=== PATIENT | male | born 1955 | race Caucasian/White ===

== ENCOUNTER 2023-09-26 19:13 | Inpatient (IN) | payer OTHER, MEDICAID ==
[~2023-09-26] VITALS: Ht 170.2 cm; Wt 70.3 kg
[2023-09-26 19:20] VITALS: BP_SYST 140; PULSE 127; RESP 25; TEMP 100.5; O2SAT 92
[2023-09-26] MEDS ORDERED: PIPERACILLIN/TAZOBACTAM 3.375 GM/VIAL (ZOSYN) IV ONE (19:42)
[2023-09-26] MEDS: methylPREDNISolone SOD SUCC/PF 62.5 MG/ML VIAL IVP ONE (19:48)
[2023-09-26 20:24] LABS: BASOPHILS % (AUTO) 0.3 % (0.0-2.0); HEMATOCRIT 38.9 % (36-54); HEMOGLOBIN 12.8 g/dL (14.0-18.0); LYMPHOCYTES # (AUTO) 0.6 K/uL (1.0-5.5); LYMPHOCYTES % (AUTO) 5.6 % (20.5-51.5); MEAN CORPUSCULAR HEMOGLOBIN 31 pg (27-31); MEAN CORPUSCULAR HGB CONC 33 % (32-36); MEAN CORPUSCULAR VOLUME 93 fL (79.0-98.0); MONOCYTES # (AUTO) 0.4 K/uL (0.0-1.0); MONOCYTES % (AUTO) 3.2 % (1.7-9.3); NEUTROPHILS # (AUTO) 10.2 K/uL (1.8-7.7); NEUTROPHILS % (AUTO) 90.9 % (40.0-70.0); PLATELET COUNT (AUTO) 245 K/uL (130-430); RED BLOOD CELL COUNT(AUTO) 4.18 MIL/uL (4.2-6.2); RED CELL DISTRIBUTION WIDTH 17.1 % (9.0-15.0); WHITE BLOOD COUNT (AUTO) 11.2 K/uL (4.8-10.8)
[2023-09-26 20:45] LABS: INFLUENZA TYPE A Negative (NEGATIVE); INFLUENZA TYPE B NEGATIVE (NEGATIVE)
[2023-09-26 20:49] LABS: ALANINE AMINOTRANSFERASE 14 U/L (12-78); ANION GAP 9 (5-15); ASPARTATE AMINOTRANSFERASE 12 U/L (10-37); BILIRUBIN,DIRECT 0.1 mg/dL (0.0-0.3); CALCIUM 7.7 mg/dL (8.4-11.0); CARBON DIOXIDE 28 mmol/L (23-29); CHLORIDE 109 mmol/L (98-107); CREATININE 0.79 mg/dL (0.55-1.30); GFR AFRICAN AMERICAN 126 mL/min (>90); GFR NON AFRICAN-AMERICAN 104 mL/min (>90); GLUCOSE 179 mg/dL (74-106); POTASSIUM 3.1 mmol/L (3.5-5.1); SODIUM SERUM 146 mmol/L (136-145); TOTAL BILIRUBIN 0.3 mg/dL (0.0-1.0); TOTAL PROTEIN, SERUM 6.8 g/dL (6.4-8.3); UREA NITROGEN, BLOOD 11 mg/dL (8-21)
[2023-09-26 20:50] LABS: PROTHROMBIN TIME 10.3 SECS (9.5-12.5)
[2023-09-26] MEDS: PIPERACILLIN/TAZO 3.375 GM in D5W 50 ML IV ONE (20:50)
[2023-09-26] MEDS: FUROSEMIDE 40 MG/4 ML VIAL IVP ONE (20:50)
[2023-09-26] MEDS: NACL 0.9% 1,000 ML IV ONE ×2 (20:53→22:56)
[2023-09-26 21:06] LABS: BILIRUBIN,URINE NEGATIVE (NEGATIVE); BLOOD, URINE NEGATIVE (NEGATIVE); CLARITY/URINE CLEAR (CLEAR); COLOR,URINE YELLOW (YELLOW); GLUCOSE,URINE NEGATIVE (NEGATIVE); KETONES,URINE NEGATIVE (NEGATIVE); LEUKOCYTE ESTERASE ,URINE NEGATIVE (NEGATIVE); NITRITE, URINE NEGATIVE (NEGATIVE); PROTEIN URINE NEGATIVE (NEGATIVE); UROBILINOGEN,URINE 0.2 (0.2-1.0)
[2023-09-26] MEDS: IPRATROPIUM/ALBUTEROL SULFATE 3 ML AMPUL.NEB (DUONEB) INH ONE (21:10)
[2023-09-26] MEDS: KCL 40 mEq in 100 mL (PREMIX) 100 ML IV ONE (22:00)
[2023-09-26] MEDS: ACETAMINOPHEN 500 MG TABLET PO ONE (22:55)
[2023-09-26] MEDS: POTASSIUM CHLORIDE 20 MEQ/PKT PACKET PO ONE (23:46)
[2023-09-27] VITALS (9 sets, daily range): BP systolic 126–145; PULSE 68–101; RESP 20–26; TEMP 97.7–98.9; O2SAT 90–95
[2023-09-27] MEDS ORDERED: DILT120C95 PO (00:01)
[2023-09-27] MEDS ORDERED: ALBU2.5V7 HHN (00:01)
[2023-09-27] MEDS ORDERED: TAMS0.4C96 PO (00:01)
[2023-09-27] MEDS ORDERED: ALLO300T2 PO (00:01)
[2023-09-27] MEDS ORDERED: ACET325T53 PO ×2 (00:28)
[2023-09-27] MEDS ORDERED: FERR-69 PO (00:28)
[2023-09-27] MEDS ORDERED: SENN8.6T19 PO (00:28)
[2023-09-27] MEDS ORDERED: DOCU-144 PO (00:28)
[2023-09-27] MEDS ORDERED: MULT-1089 PO (00:28)
[2023-09-27] MEDS ORDERED: LABE100T8 PO (00:28)
[2023-09-27] MEDS ORDERED: ACET-73 PO (00:28)
[2023-09-27] MEDS ORDERED: MOM PO (00:28)
[2023-09-27] MEDS ORDERED: BISA-140 RC (00:31)
[2023-09-27] MEDS ORDERED: IPRATROPIUM/ALBUTEROL SULFATE 3 ML AMPUL.NEB (DUONEB) INH PRN ×2 (09:45)
[2023-09-27 09:58] LABS: BASOPHILS % (AUTO) 0.1 % (0.0-2.0); HEMATOCRIT 40.5 % (36-54); HEMOGLOBIN 13.3 g/dL (14.0-18.0); LYMPHOCYTES # (AUTO) 0.5 K/uL (1.0-5.5); LYMPHOCYTES % (AUTO) 5.2 % (20.5-51.5); MEAN CORPUSCULAR HEMOGLOBIN 31 pg (27-31); MEAN CORPUSCULAR HGB CONC 33 % (32-36); MEAN CORPUSCULAR VOLUME 95 fL (79.0-98.0); MONOCYTES # (AUTO) 0.2 K/uL (0.0-1.0); MONOCYTES % (AUTO) 2.5 % (1.7-9.3); NEUTROPHILS % (AUTO) 92.2 % (40.0-70.0); PLATELET COUNT (AUTO) 242 K/uL (130-430); RED BLOOD CELL COUNT(AUTO) 4.28 MIL/uL (4.2-6.2); RED CELL DISTRIBUTION WIDTH 17.5 % (9.0-15.0); WHITE BLOOD COUNT (AUTO) 8.7 K/uL (4.8-10.8)
[2023-09-27 10:02] LABS: ABG O2 SAT% ESTIMATE 89.8 % (94.0-100.0); BLOOD GAS BASE EXCESS 4.3 mmol/L (-3.0-3.0); BLOOD GAS HCO3 26.7 mmol/L (21.0-27.0); BLOOD GAS PCO2 33.5 mmHg (32.0-45.0)
[2023-09-27 10:06] LABS: ALLEN'S TEST POSITIVE (P); BLOOD GAS PO2 50.7 mmHg (75.0-100.0)
[2023-09-27 10:12] LABS: CALCIUM 7.9 mg/dL (8.4-11.0); CREATININE 0.77 mg/dL (0.55-1.30)
[2023-09-27] MEDS ORDERED: LABETALOL HCL 100 MG TABLET PO SCH (11:30)
[2023-09-27] MEDS ORDERED: MULTIVITAMINS TAB 1 TABLET PO SCH (11:30)
[2023-09-27] MEDS ORDERED: LORazepam 2 MG/ML VIAL IVP PRN (11:30)
[2023-09-27] MEDS ORDERED: ACETAMINOPHEN 325 MG TABLET PO PRN (11:30)
[2023-09-27] MEDS ORDERED: NON-FORMULARY MEDICATION (Ferrous Sulfate 325 MG) PO SCH (11:30)
[2023-09-27] MEDS ORDERED: NALOXONE HCL 0.4 MG/ML AMP (NARCAN) IVP PRN ×2 (11:30)
[2023-09-27] MEDS ORDERED: ONDANSETRON HCL 4 MG/2 ML VIAL IVP PRN (11:30)
[2023-09-27] MEDS ORDERED: MILK OF MAGNESIA 30 ML UDC PO PRN (11:30)
[2023-09-27] MEDS: IPRATROPIUM/ALBUTEROL SULFATE 3 ML AMPUL.NEB (DUONEB) INH ONE (11:42)
[2023-09-27] MEDS: TAMSULOSIN HCL 0.4 MG CAP PO ONE (12:44)
[2023-09-27] MEDS: FERROUS SULFATE 325 MG TABLET.DR PO ONE (12:45)
[2023-09-27] MEDS: ALLOPURINOL 300 MG TABLET (ZYLOPRIM) PO ONE (12:45)
[2023-09-27] MEDS: MULTIVITAMINS TAB 1 TABLET PO ONE (12:45)
[2023-09-27] MEDS: DILTIAZEM HCL 120 MG CAP.SR.24H PO ONE (12:45)
[2023-09-27] MEDS: PIPERACILLIN/TAZO 3.375/DEX-IS 50 ML IV SCH (12:51)
[2023-09-27] MEDS: MORPHINE 2 MG/ML INJ. SYRINGE IVP ONE (13:56)
[2023-09-27] MEDS: NORMAL SALINE 5 ML DISP.SYRIN IVF SCH (13:56)
[2023-09-27] MEDS ORDERED: LABETALOL HCL 100 MG TABLET PO PRN (14:00)
[2023-09-27] MEDS ORDERED: IPRATROPIUM/ALBUTEROL SULFATE 3 ML AMPUL.NEB (DUONEB) INH SCH (15:00)
[2023-09-27] MEDS: ALBUTEROL SULFATE 0.083% 2.5 MG/3 ML VIAL.NEB INH SCH (15:06)
[2023-09-27] MEDS: IPRATROPIUM BROM 0.5 MG/2.5 ML VIAL.NEB (ATROVENT) INH SCH (15:06)
[2023-09-27] MEDS: POTASSIUM CHLORIDE 20 MEQ TABLET.ER PO ONE (15:18)
[2023-09-27 20:55] LABS: BODY FLUID TOTAL PROTEIN 4.4 g/dL
[2023-09-27] MEDS: SENNOSIDES 8.6 MG TABLET PO SCH (21:00)
[2023-09-27] MEDS: DOCUSATE SODIUM 100 MG CAPSULE PO SCH (21:00)
[2023-09-28] VITALS (15 sets, daily range): BP systolic 122–142; PULSE 81–97; RESP 16–19; TEMP 97–98.7; O2SAT 90–98
[2023-09-28 05:08] LABS: HEMATOCRIT 36.3 % (36-54); HEMOGLOBIN 11.9 g/dL (14.0-18.0); LYMPHOCYTES # (AUTO) 0.5 K/uL (1.0-5.5); LYMPHOCYTES % (AUTO) 5.8 % (20.5-51.5); MEAN CORPUSCULAR HEMOGLOBIN 31 pg (27-31); MEAN CORPUSCULAR HGB CONC 33 % (32-36); MEAN CORPUSCULAR VOLUME 94 fL (79.0-98.0); MONOCYTES # (AUTO) 0.3 K/uL (0.0-1.0); NEUTROPHILS # (AUTO) 8.1 K/uL (1.8-7.7); NEUTROPHILS % (AUTO) 91.2 % (40.0-70.0); PLATELET COUNT (AUTO) 233 K/uL (130-430); RED BLOOD CELL COUNT(AUTO) 3.86 MIL/uL (4.2-6.2); RED CELL DISTRIBUTION WIDTH 17.3 % (9.0-15.0); WHITE BLOOD COUNT (AUTO) 8.9 K/uL (4.8-10.8)
[2023-09-28 05:37] LABS: ALBUMIN 1.8 g/dL (3.4-4.8); CALCIUM 8.1 mg/dL (8.4-11.0); CREATININE 0.57 mg/dL (0.55-1.30); TOTAL BILIRUBIN 0.2 mg/dL (0.0-1.0); TOTAL PROTEIN, SERUM 5.8 g/dL (6.4-8.3)
[2023-09-28] MEDS: MULTIVITAMINS TAB 1 TABLET PO SCH (09:51)
[2023-09-28] MEDS: FERROUS SULFATE 325 MG TABLET.DR PO SCH (09:51)
[2023-09-28] MEDS: TAMSULOSIN HCL 0.4 MG CAP PO SCH (09:51)
[2023-09-28] MEDS: ALLOPURINOL 300 MG TABLET (ZYLOPRIM) PO SCH (09:51)
[2023-09-28] MEDS: DILTIAZEM HCL 120 MG CAP.SR.24H PO SCH (09:52)
[2023-09-28] MEDS: HYDROcodone/ACETAMIN 10-325 MG TAB PO PRN (17:41)
[2023-09-29] VITALS (15 sets, daily range): BP systolic 118–156; PULSE 85–100; RESP 16–18; TEMP 97.3–98.2; O2SAT 89–99
[2023-09-29 07:52] LABS: BASOPHILS % (AUTO) 0.2 % (0.0-2.0); HEMATOCRIT 39.8 % (36-54); HEMOGLOBIN 13.2 g/dL (14.0-18.0); LYMPHOCYTES # (AUTO) 0.4 K/uL (1.0-5.5); LYMPHOCYTES % (AUTO) 5.3 % (20.5-51.5); MEAN CORPUSCULAR HEMOGLOBIN 31 pg (27-31); MEAN CORPUSCULAR HGB CONC 33 % (32-36); MEAN CORPUSCULAR VOLUME 94 fL (79.0-98.0); MONOCYTES # (AUTO) 0.2 K/uL (0.0-1.0); MONOCYTES % (AUTO) 2.1 % (1.7-9.3); NEUTROPHILS # (AUTO) 7.4 K/uL (1.8-7.7); NEUTROPHILS % (AUTO) 92.4 % (40.0-70.0); PLATELET COUNT (AUTO) 230 K/uL (130-430); RED BLOOD CELL COUNT(AUTO) 4.23 MIL/uL (4.2-6.2)
[2023-09-29 08:03] LABS: CALCIUM 8.2 mg/dL (8.4-11.0); CREATININE 0.58 mg/dL (0.55-1.30)
[2023-09-29 08:07] LABS: POTASSIUM 2.4 mmol/L (3.5-5.1)
[2023-09-29 08:09] LABS: ERYTHROCYTE SEDIMENTATION RATE 57 MM/HR (0-15)
[2023-09-29] MEDS: POTASSIUM CHLORIDE 40 MEQ, LIDOCAINE JECT 2% PF 100 MG 50 MG in NS 250 ML IV ONE (11:47)
[2023-09-29] MEDS: ACETAMINOPHEN 325 MG TABLET PO PRN (20:32)
[2023-09-30] VITALS (22 sets, daily range): BP systolic 135–148; PULSE 84–115; RESP 16–37; TEMP 97.3–98.6; O2SAT 91–100
[2023-09-30 07:14] LABS: BASOPHILS % (AUTO) 0.1 % (0.0-2.0); HEMOGLOBIN 12.5 g/dL (14.0-18.0); LYMPHOCYTES # (AUTO) 0.2 K/uL (1.0-5.5); LYMPHOCYTES % (AUTO) 3.5 % (20.5-51.5); MEAN CORPUSCULAR HEMOGLOBIN 32 pg (27-31); MEAN CORPUSCULAR HGB CONC 34 % (32-36); MEAN CORPUSCULAR VOLUME 95 fL (79.0-98.0); MONOCYTES # (AUTO) 0.1 K/uL (0.0-1.0); MONOCYTES % (AUTO) 2.3 % (1.7-9.3); NEUTROPHILS # (AUTO) 5.9 K/uL (1.8-7.7); NEUTROPHILS % (AUTO) 94.1 % (40.0-70.0); PLATELET COUNT (AUTO) 184 K/uL (130-430); RED BLOOD CELL COUNT(AUTO) 3.91 MIL/uL (4.2-6.2); RED CELL DISTRIBUTION WIDTH 16.5 % (9.0-15.0); WHITE BLOOD COUNT (AUTO) 6.3 K/uL (4.8-10.8)
[2023-09-30 07:28] LABS: CALCIUM 7.9 mg/dL (8.4-11.0); CREATININE 0.4 mg/dL (0.55-1.30)
[2023-09-30 07:42] LABS: ERYTHROCYTE SEDIMENTATION RATE 54 MM/HR (0-15)
[2023-09-30 07:43] LABS: POTASSIUM 2.1 mmol/L (3.5-5.1)
[2023-09-30] MEDS: POTASSIUM CHLORIDE 20 MEQ/PKT PACKET PO ONE (09:36)
[2023-09-30 10:01] LABS: BLOOD GAS BASE EXCESS 8.8 mmol/L (-3.0-3.0); BLOOD GAS HCO3 30.7 mmol/L (21.0-27.0); BLOOD GAS PCO2 33.6 mmHg (32.0-45.0)
[2023-09-30 10:05] LABS: ABG O2 SAT% ESTIMATE 85.3 % (94.0-100.0); BLOOD GAS PH 7.579 (7.350-7.450)
[2023-09-30 10:06] LABS: ALLEN'S TEST POSITIVE (P)
[2023-09-30] MEDS: POTASSIUM CHLORIDE 40 MEQ, LIDOCAINE JECT 2% PF 100 MG 50 MG in NS 250 ML IV ONE (10:37)
[2023-09-30] MEDS: LIDOCAINE 1% 10 MG/ML, 20 ML MDV INJ ONE (15:45)
[2023-10-01] VITALS (23 sets, daily range): BP systolic 109–150; PULSE 72–94; RESP 12–31; TEMP 97.3–97.8; O2SAT 94–100
[2023-10-01 05:56] LABS: ALBUMIN 1.8 g/dL (3.4-4.8); CALCIUM 8.1 mg/dL (8.4-11.0); CREATININE 0.5 mg/dL (0.55-1.30); TOTAL BILIRUBIN 0.7 mg/dL (0.0-1.0); TOTAL PROTEIN, SERUM 6.2 g/dL (6.4-8.3)
[2023-10-01 06:47] LABS: BASOPHILS % (AUTO) 0.1 % (0.0-2.0); EOSINOPHILS % (AUTO) 0.1 % (0.0-4.0); HEMATOCRIT 39.6 % (36-54); HEMOGLOBIN 12.9 g/dL (14.0-18.0); LYMPHOCYTES # (AUTO) 0.4 K/uL (1.0-5.5); LYMPHOCYTES % (AUTO) 8.9 % (20.5-51.5); MEAN CORPUSCULAR HEMOGLOBIN 31 pg (27-31); MEAN CORPUSCULAR HGB CONC 33 % (32-36); MEAN CORPUSCULAR VOLUME 95 fL (79.0-98.0); MONOCYTES # (AUTO) 0.2 K/uL (0.0-1.0); MONOCYTES % (AUTO) 3.6 % (1.7-9.3); NEUTROPHILS % (AUTO) 87.3 % (40.0-70.0); PLATELET COUNT (AUTO) 163 K/uL (130-430); RED BLOOD CELL COUNT(AUTO) 4.19 MIL/uL (4.2-6.2); RED CELL DISTRIBUTION WIDTH 16.6 % (9.0-15.0); WHITE BLOOD COUNT (AUTO) 4.5 K/uL (4.8-10.8)
[2023-10-01 07:19] LABS: POTASSIUM 2.6 mmol/L (3.5-5.1)
[2023-10-01] MEDS: POTASSIUM CHLORIDE 20 MEQ/PKT PACKET ONE (08:35)
[2023-10-01] MEDS: POTASSIUM CHLORIDE 20 MEQ/PKT PACKET PO ONE ×2 (08:36→16:45)
[2023-10-01] MEDS: HYDROcodone/ACETAMIN 5-325 MG TAB (NORCO/ VICODIN) PO PRN (16:33)
[2023-10-01] MEDS: D5W 1,000 ML IV SCH (21:09)
[2023-10-02] VITALS (9 sets, daily range): BP systolic 122–148; PULSE 75–96; RESP 15–22; TEMP 97.1–98.8; O2SAT 94–98
[2023-10-02 07:00] LABS: BASOPHILS % (AUTO) 0.1 % (0.0-2.0); HEMATOCRIT 38.7 % (36-54); HEMOGLOBIN 12.7 g/dL (14.0-18.0); LYMPHOCYTES # (AUTO) 0.4 K/uL (1.0-5.5); LYMPHOCYTES % (AUTO) 7.6 % (20.5-51.5); MEAN CORPUSCULAR HEMOGLOBIN 31 pg (27-31); MEAN CORPUSCULAR HGB CONC 33 % (32-36); MEAN CORPUSCULAR VOLUME 95 fL (79.0-98.0); MONOCYTES # (AUTO) 0.1 K/uL (0.0-1.0); MONOCYTES % (AUTO) 2.7 % (1.7-9.3); NEUTROPHILS # (AUTO) 4.4 K/uL (1.8-7.7); NEUTROPHILS % (AUTO) 89.6 % (40.0-70.0); PLATELET COUNT (AUTO) 141 K/uL (130-430); RED BLOOD CELL COUNT(AUTO) 4.07 MIL/uL (4.2-6.2); RED CELL DISTRIBUTION WIDTH 16.4 % (9.0-15.0); WHITE BLOOD COUNT (AUTO) 4.9 K/uL (4.8-10.8)
[2023-10-02 08:06] LABS: QUANTIFERON TB GOLD Indeterminate (Negative)
[2023-10-02 08:38] LABS: CALCIUM 7.8 mg/dL (8.4-11.0); CREATININE 0.53 mg/dL (0.55-1.30)
[2023-10-02 09:38] LABS: ERYTHROCYTE SEDIMENTATION RATE 38 MM/HR (0-15)
[2023-10-03] VITALS (10 sets, daily range): BP systolic 114–133; PULSE 72–89; RESP 14–15; TEMP 97.7–98.4; O2SAT 96–100
[2023-10-03 05:07] LABS: ERYTHROCYTE SEDIMENTATION RATE 36 MM/HR (0-15)
[2023-10-03 05:20] LABS: BASOPHILS % (AUTO) 0.2 % (0.0-2.0); HEMATOCRIT 37.7 % (36-54); HEMOGLOBIN 12.2 g/dL (14.0-18.0); LYMPHOCYTES # (AUTO) 0.4 K/uL (1.0-5.5); LYMPHOCYTES % (AUTO) 8.2 % (20.5-51.5); MEAN CORPUSCULAR HEMOGLOBIN 30 pg (27-31); MEAN CORPUSCULAR HGB CONC 32 % (32-36); MEAN CORPUSCULAR VOLUME 94 fL (79.0-98.0); MONOCYTES # (AUTO) 0.1 K/uL (0.0-1.0); MONOCYTES % (AUTO) 2.5 % (1.7-9.3); NEUTROPHILS # (AUTO) 4.8 K/uL (1.8-7.7); NEUTROPHILS % (AUTO) 89.1 % (40.0-70.0); PLATELET COUNT (AUTO) 123 K/uL (130-430); RED BLOOD CELL COUNT(AUTO) 4.03 MIL/uL (4.2-6.2); RED CELL DISTRIBUTION WIDTH 16.6 % (9.0-15.0); WHITE BLOOD COUNT (AUTO) 5.3 K/uL (4.8-10.8)
[2023-10-03 05:30] LABS: ALBUMIN 1.7 g/dL (3.4-4.8); CALCIUM 7.6 mg/dL (8.4-11.0); CREATININE 0.56 mg/dL (0.55-1.30); PHOSPHORUS 3.1 mg/dL (2.7-4.5); POTASSIUM 3.1 mmol/L (3.5-5.1); TOTAL BILIRUBIN 0.5 mg/dL (0.0-1.0); TOTAL PROTEIN, SERUM 5.7 g/dL (6.4-8.3)
[2023-10-03] MEDS: CALCIUM GLUC 2 GM/100ML-NACL 100 ML IV ONE (11:34)
[2023-10-03] MEDS: POTASSIUM CHLORIDE 20 MEQ TABLET.ER PO ONE (11:34)
[2023-10-04] VITALS (13 sets, daily range): BP systolic 127–148; PULSE 66–92; RESP 15–22; TEMP 97.2–99; O2SAT 95–100
[2023-10-04 03:07] LABS: COCCIDIOIDES AB IGG 0.8 IV (<=0.9); COCCIDIOIDES AB IGM 0.2 IV (<=0.9)
[2023-10-04 06:14] LABS: BASOPHILS % (AUTO) 0.1 % (0.0-2.0); HEMATOCRIT 38.1 % (36-54); HEMOGLOBIN 12.6 g/dL (14.0-18.0); LYMPHOCYTES # (AUTO) 0.4 K/uL (1.0-5.5); LYMPHOCYTES % (AUTO) 7.8 % (20.5-51.5); MEAN CORPUSCULAR HEMOGLOBIN 31 pg (27-31); MEAN CORPUSCULAR HGB CONC 33 % (32-36); MEAN CORPUSCULAR VOLUME 93 fL (79.0-98.0); MONOCYTES # (AUTO) 0.2 K/uL (0.0-1.0); MONOCYTES % (AUTO) 3.3 % (1.7-9.3); NEUTROPHILS # (AUTO) 4.8 K/uL (1.8-7.7); NEUTROPHILS % (AUTO) 88.8 % (40.0-70.0); PLATELET COUNT (AUTO) 104 K/uL (130-430); RED BLOOD CELL COUNT(AUTO) 4.08 MIL/uL (4.2-6.2); RED CELL DISTRIBUTION WIDTH 16.4 % (9.0-15.0); WHITE BLOOD COUNT (AUTO) 5.4 K/uL (4.8-10.8)
[2023-10-04 06:19] LABS: ERYTHROCYTE SEDIMENTATION RATE 30 MM/HR (0-15)
[2023-10-04 06:31] LABS: CREATININE 0.47 mg/dL (0.55-1.30); POTASSIUM 3.4 mmol/L (3.5-5.1)
[2023-10-05] VITALS (9 sets, daily range): BP systolic 133–156; PULSE 78–98; RESP 17–20; TEMP 97.8–98.6; O2SAT 95–99
[2023-10-05 06:41] LABS: BASOPHILS % (AUTO) 0.1 % (0.0-2.0); HEMATOCRIT 40.4 % (36-54); LYMPHOCYTES # (AUTO) 0.4 K/uL (1.0-5.5); LYMPHOCYTES % (AUTO) 6.1 % (20.5-51.5); MEAN CORPUSCULAR HEMOGLOBIN 30 pg (27-31); MEAN CORPUSCULAR HGB CONC 32 % (32-36); MEAN CORPUSCULAR VOLUME 94 fL (79.0-98.0); MONOCYTES # (AUTO) 0.2 K/uL (0.0-1.0); MONOCYTES % (AUTO) 2.7 % (1.7-9.3); NEUTROPHILS # (AUTO) 5.8 K/uL (1.8-7.7); NEUTROPHILS % (AUTO) 91.1 % (40.0-70.0); PLATELET COUNT (AUTO) 93 K/uL (130-430); RED CELL DISTRIBUTION WIDTH 16.3 % (9.0-15.0); WHITE BLOOD COUNT (AUTO) 6.3 K/uL (4.8-10.8)
[2023-10-05 06:46] LABS: ERYTHROCYTE SEDIMENTATION RATE 19 MM/HR (0-15)
[2023-10-05 06:57] LABS: ALBUMIN 1.9 g/dL (3.4-4.8); CALCIUM 7.8 mg/dL (8.4-11.0); CREATININE 0.42 mg/dL (0.55-1.30); POTASSIUM 3.6 mmol/L (3.5-5.1); TOTAL BILIRUBIN 0.5 mg/dL (0.0-1.0); TOTAL PROTEIN, SERUM 5.9 g/dL (6.4-8.3)
== END 2023-10-05 19:15 | disposition short-term general hospital (02) | DRG 871 ==
LOC: SED 19:13 → STU 22:41 → SIC 09-30 12:50 → STU 10-01 18:21 → SMU 10-05 08:14
PROVIDERS: ADMIT Preventive Medicine Preventive Medicine/Occupational Environmental Medicine; ATTEND Preventive Medicine Preventive Medicine/Occupational Environmental Medicine
PROC: 0W993ZZ Drainage of Right Pleural Cavity, Percutaneous Approach (ICD-10-PCS; 2023-09-27)
PROC: 5A0935A Assistance with Respiratory Ventilation, Less than 24 Consecutive Hours, High Flow/Velocity Cannula (ICD-10-PCS; 2023-09-28)
PROC: 0W9930Z Drainage of Right Pleural Cavity with Drainage Device, Percutaneous Approach (ICD-10-PCS; principal; 2023-09-30)
PROC: 5A0935A Assistance with Respiratory Ventilation, Less than 24 Consecutive Hours, High Flow/Velocity Cannula (ICD-10-PCS; 2023-09-30)
PROC: 5A0935A Assistance with Respiratory Ventilation, Less than 24 Consecutive Hours, High Flow/Velocity Cannula (ICD-10-PCS; 2023-10-01)
DX: A41.9 Sepsis, unspecified organism (principal); E43 Unspecified severe protein-calorie malnutrition; J18.9 Pneumonia, unspecified organism; J96.01 Acute respiratory failure with hypoxia; J86.9 Pyothorax without fistula; J44.0 Chronic obstructive pulmonary disease with (acute) lower respiratory infection; E87.0 Hyperosmolality and hypernatremia; C34.90 Malignant neoplasm of unspecified part of unspecified bronchus or lung; E87.6 Hypokalemia; R73.9 Hyperglycemia, unspecified; E83.51 Hypocalcemia; Z20.822 Contact with and (suspected) exposure to COVID-19; E88.09 Other disorders of plasma-protein metabolism, not elsewhere classified; R59.1 Generalized enlarged lymph nodes; I11.0 Hypertensive heart disease with heart failure; D64.9 Anemia, unspecified; R74.01 Elevation of levels of liver transaminase levels; D69.6 Thrombocytopenia, unspecified; I50.9 Heart failure, unspecified; Z85.118 Personal history of other malignant neoplasm of bronchus and lung; Z68.24 Body mass index [BMI] 24.0-24.9, adult
CPT/HCPCS: 32555; 36415; 36600; 71045; 71250-TC; 80048; 80053; 80076; 81001; 81003; 82803; 82947; 83605; 83735; 84100; 84132; 84157; 84484; 85025; 85610; 85651; 85730; 86480; 86635; 87040; 87070; 87081; 87086; 87305; 88108; 93005; 94640; 94664; 94760; 97116-GP; 97530-GP; 99285; G0378; J0696; J1940; J2001; J2270; J2543; J2930; J3480; J7050; J7060